=== PATIENT | female | born 1980 | race Caucasian/White ===

== ENCOUNTER → 2018-07-30 | Outpatient (CLI) | payer OTHER ==
[~2018-07-30] MED LIST: FLUT12HF2 IH; PREN-127 PO
[2018-07-30 14:55] LABS: PLATELET COUNT, AUTOMATED 317 K/uL (150-450)
== END ==
LOC: LAB 12:19
PROVIDERS: ATTEND Student in an Organized Health Care Education/Training Program
DX: Z34.81 Encounter for supervision of other normal pregnancy, first trimester (principal)
CPT/HCPCS: 36415; 81001; 85025; 86592; 86703; 86762; 86850; 86900; 86901; 87088; 87340

== ENCOUNTER → 2018-10-23 | Outpatient (CLI) | payer OTHER ==
[~2018-10-23] MED LIST changes: +BUTA1TAB14 PO
== END ==
LOC: LAB 15:42
PROVIDERS: ATTEND Obstetrics & Gynecology
DX: O09.529 Supervision of elderly multigravida, unspecified trimester (principal)
CPT/HCPCS: 36415; 82105